=== PATIENT | female | born 1980 | race Caucasian/White ===

== ENCOUNTER 2024-03-24 11:29 | Outpatient (CLI) | payer BC ==
[2024-03-24 13:53] LABS: #Basophils 0.03 10x3/uL (0.0-0.2); #Eosinphils 0.21 10x3/uL (0.0-0.5); #Monocytes 0.59 10x3/uL (0.0-1.1); #Neutrophils 4.32 10x3/uL (1.5-8.4); %Basophils 0.4 % (0.0-2.0); %Eosinophils 2.6 % (0.0-6.0); %Lymphocytes 35.5 % (18.0-47.0); %Monocytes 7.4 % (0.0-10.0); %Neutrophils 53.9 % (40.0-75.0); Hematocrit 40.3 % (34.9-44.5); Hemoglobin 13.9 g/dL (12.0-15.5); Mean Corpuscular HGB CONC 34.5 g/dL (32.0-36.0); Mean Corpuscular Hemoglobin 31.2 pg (27.0-33.0); Mean Corpuscular Volume 90.6 fl (81.6-98.3); Mean Platelet Volume 10.1 fl (7.4-10.4); Platelet Count 300 10x3/uL (150-450); RBC Distribution Width 12.3 % (11.5-14.5); Red Blood Cell (RBC) Count 4.45 10x6/uL (3.90-5.03)
[2024-03-24 14:18] LABS: Anion Gap 13 mmol/L (10-20); BUN (Urea Nitrogen) 8 mg/dL (7.0-18.7); Calc. Creatinine Clearance 0 mL/min (70-130); Calcium 9.3 mg/dL (7.8-10.44); Carbon Dioxide 26 mmol/L (22-29); Chloride 104 mmol/L (98-107); Estimated GFR 97; Glucose 66 mg/dL (70-105); Potassium 4.2 mmol/L (3.5-5.1); Sodium 139 mmol/L (136-145)
== END 2024-03-24 11:30 | disposition home or self-care (01) ==
LOC: LABBT 11:29
PROVIDERS: ATTEND Specialist
DX: Z01.812 Encounter for preprocedural laboratory examination (principal); C50.911 Malignant neoplasm of unspecified site of right female breast
CPT/HCPCS: 80048; 85025

== ENCOUNTER 2024-03-30 07:19 | Day surgery (SDC) | payer BC ==
[2024-03-24 11:56] VITALS: BMI 29.1
[2024-03-30] MEDS ORDERED: SUCCINYLCHOLINE/SOD CL,ISO/PF 200 MG/10 ML SYRINGE FS ONE (07:57)
[2024-03-30] MEDS ORDERED: Lidocaine 1% PF 5 ML VIAL ONE (07:57)
[2024-03-30] MEDS ORDERED: PROPOFOL 20 ML ONE (07:57)
[2024-03-30] MEDS ORDERED: EPINEPHrine 1 MG/ML VIAL ONE (07:59)
[2024-03-30] MEDS ORDERED: Isosulfan Blue 50 MG/5 ML VIAL ONE (07:59)
[2024-03-30] MEDS ORDERED: Bupivacaine 0.25% HCL 30 ML VIAL ONE ×2 (07:59→11:37)
[2024-03-30] MEDS ORDERED: Acetaminophen 500 MG TAB ONE (09:37)
[2024-03-30] MEDS ORDERED: Ketorolac Tromethamine 30 MG (1 mL) VIAL ONE (09:37)
[2024-03-30] MEDS ORDERED: Sodium Chloride 0.9% 100 ML ONE (09:55)
[2024-03-30] MEDS ORDERED: CEFAZOLIN 2 GM VIAL ONE (09:55)
[2024-03-30] MEDS ORDERED: fentaNYL 50 mcg/mL 1 mL Vial ONE ×3 (10:08→11:18)
[2024-03-30] MEDS ORDERED: Dexamethasone 20 MG/5 ML VIAL ONE (10:15)
[2024-03-30] MEDS ORDERED: Ondansetron PF 4 MG/2 ML Vial ONE (10:15)
[2024-03-30] MEDS ORDERED: Lidocaine 1% (PF) 30 ML VIAL ONE (10:27)
[2024-03-30] MEDS ORDERED: HYDROcodone/Acetaminophen 5/325 mg Tablet ONE (13:49)
== END 2024-03-30 14:30 | disposition home or self-care (01) ==
LOC: SDC 07:19
PROVIDERS: ATTEND Specialist
PROC: 07T50ZZ Resection of Right Axillary Lymphatic, Open Approach (ICD-10-PCS; principal; 2024-03-30)
PROC: 0HBT0ZZ Excision of Right Breast, Open Approach (ICD-10-PCS; principal; 2024-03-30)
DX: C50.911 Malignant neoplasm of unspecified site of right female breast (principal); F41.9 Anxiety disorder, unspecified; F32.A Depression, unspecified; E07.9 Disorder of thyroid, unspecified; Z17.0 Estrogen receptor positive status [ER+]
CPT/HCPCS: 76098; 78195; 88307; 88341; 88342; 88360; A9541; C1713; J0171; J0665; J1100; J1885; J2001; J2405; J2704; J3010; J3490; Q9968

== ENCOUNTER 2024-04-28 11:01 | Day surgery (SDC) | payer BC ==
[2024-04-27 09:10] VITALS: BMI 29.1
[2024-04-28] MEDS ORDERED: Ketorolac Tromethamine 30 MG (1 mL) VIAL ONE (11:42)
[2024-04-28] MEDS ORDERED: Acetaminophen 500 MG TAB ONE (11:43)
[2024-04-28] MEDS ORDERED: Bupivacaine 0.25% HCL 30 ML VIAL ONE (12:11)
[2024-04-28] MEDS ORDERED: EPINEPHrine 1 MG/ML VIAL ONE (12:11)
[2024-04-28] MEDS ORDERED: Ondansetron PF 4 MG/2 ML Vial ONE (12:22)
[2024-04-28] MEDS ORDERED: Dexamethasone 4 mg/ml Vial ONE (12:22)
[2024-04-28] MEDS ORDERED: Lidocaine 1% PF 5 ML VIAL ONE (12:22)
[2024-04-28] MEDS ORDERED: fentaNYL PF 100 MCG/2 ML SYRINGE ONE (12:22)
[2024-04-28] MEDS ORDERED: PROPOFOL 40 ML ONE (12:22)
[2024-04-28] MEDS ORDERED: CEFAZOLIN 2 GM VIAL ONE (12:30)
[2024-04-28] MEDS ORDERED: Sodium Chloride 0.9% 100 ML ONE (12:31)
[2024-04-28] MEDS ORDERED: Lidocaine 2% PF 100 mg/5 ml Syringe ONE (12:32)
[2024-04-28] MEDS ORDERED: Lidocaine 2% PF 5 ML VIAL ONE (12:33)
[2024-04-28] MEDS ORDERED: ePHEDrine Sulfate 50 MG/10 ML VIAL ONE (12:51)
[2024-04-28] MEDS ORDERED: PHENYLEPHRINE-NS 100 MCG/ML 10 ML SYRINGE ONE (13:13)
== END 2024-04-28 15:30 | disposition home or self-care (01) ==
LOC: SDC 11:01
PROVIDERS: ATTEND Specialist
PROC: 0JH60WZ Insertion of Totally Implantable Vascular Access Device into Chest Subcutaneous Tissue and Fascia, Open Approach (ICD-10-PCS; principal; 2024-04-28)
PROC: 0HBT0ZZ Excision of Right Breast, Open Approach (ICD-10-PCS; principal; 2024-04-28)
DX: C50.911 Malignant neoplasm of unspecified site of right female breast (principal); F41.9 Anxiety disorder, unspecified; F32.A Depression, unspecified; E07.9 Disorder of thyroid, unspecified; Z79.890 Hormone replacement therapy; Z79.899 Other long term (current) drug therapy
CPT/HCPCS: 71045; 88307; C1788; J0171; J0665; J1100; J1642; J1885; J2001; J2405; J2704; J3490